=== PATIENT | female | born 1930 | race Asian ===

== ENCOUNTER 2019-03-21 20:04 | Inpatient (IN) | payer MEDICARE, BC ==
[2019-03-21 20:38] LABS: ADD MAN DIFF? NO
[2019-03-21] MEDS: ONDANSETRON 4 MG INJ IV (20:38)
[2019-03-21] MEDS: morphine 4 MG/ML VIAL IV (20:38)
[2019-03-21] MEDS: LACTATED RINGER'S 1,000 ML IV (20:38)
[2019-03-21 20:40] LABS: BASOPHILS % 0.1 % (0.0-2.0); EOSINOPHILS % 0.1 % (0.0-7.0); HEMATOCRIT 30.3 % (37.0-47.0); HEMOGLOBIN 10.3 g/dl (12.0-16.0); LYMPHOCYTES # 1.4 10^3/ul (0.8-2.9); LYMPHOCYTES % 12.8 % (15.0-51.0); MEAN CORPUSCULAR HEMOGLOBIN 32.1 pg (29.0-33.0); MEAN CORPUSCULAR VOLUME 94.4 fl (82.0-101.0); MEAN PLATELET VOLUME 10.1 fl (7.4-10.4); MONOCYTE # 0.9 10^3/ul (0.3-0.9); MONOCYTES % 7.9 % (0.0-11.0); NEUTROPHIL # 8.8 10^3/ul (1.6-7.5); NEUTROPHILS % 78.3 % (39.0-77.0); PLATELET COUNT 149 10^3/UL (140-415); RED BLOOD COUNT 3.21 10^6/ul (4.20-5.40)
[2019-03-21 20:40] LABS: WHITE BLOOD COUNT 11.3 10^3/ul (4.8-10.8)
[2019-03-21 20:59] LABS: INR 1.09; PROTIME 14.2 Sec (11.9-14.9); PT RATIO 1.1
[2019-03-21 21:20] LABS: ALANINE AMINOTRANSFERASE 29 IU/L (13-69); ALBUMIN 3.7 g/dl (3.3-4.9); ALBUMIN/GLOBULIN RATIO 1.27; ALKALINE PHOSPHATASE 44 IU/L (42-121); ANION GAP 10 (5-13); ASPARTATE AMINO TRANSFERASE 25 IU/L (15-46); BILIRUBIN,INDIRECT 0.8 mg/dl (0-1.1); BILIRUBIN,TOTAL 0.8 mg/dl (0.2-1.3); BLOOD UREA NITROGEN 21 mg/dl (7-20); CALCIUM 10.2 mg/dl (8.4-10.2); CARBON DIOXIDE 24 mmol/L (21-31); CHLORIDE 100 mmol/L (97-110); CREATININE 0.78 mg/dl (0.44-1.00); GLUCOSE 146 mg/dl (70-220); LIPASE 168 U/L (23-300); POTASSIUM 4.3 mmol/L (3.5-5.1); SODIUM 134 mmol/L (135-144); TOTAL PROTEIN 6.6 g/dl (6.1-8.1)
[2019-03-21 21:32] LABS: TROPONIN-I < 0.012 ng/ml (0.000-0.120)
[2019-03-21] MEDS: HYDROmorphONE 1 MG/ML SYG IV (21:33)
[2019-03-22] MEDS ORDERED: GLUCOSE GEL 15 GRAM TUBE BUCCAL (02:30)
[2019-03-22] MEDS ORDERED: DEXTROSE 50% 50 ML SYRINGE IV ×2 (02:30)
[2019-03-22] MEDS ORDERED: GLUCOSE GEL 15 GRAM TUBE PO ×2 (02:30)
[2019-03-22] MEDS ORDERED: ONDANSETRON 4 MG INJ IV (02:30)
[2019-03-22] MEDS ORDERED: GLUCAGON 1 MG INJ IM (02:30)
[2019-03-22] MEDS ORDERED: ACETAMINOPHEN 325 MG TAB PO (02:30)
[2019-03-22] MEDS: HYDROCODONE/APAP (5/325) TAB PO ×3 (02:52→12:37)
[2019-03-22 06:09] LABS: ADD MAN DIFF? NO
[2019-03-22 06:14] LABS: BASOPHILS % 0.1 % (0.0-2.0); HEMATOCRIT 24.3 % (37.0-47.0); LYMPHOCYTES # 1.7 10^3/ul (0.8-2.9); MEAN CORPUSCULAR HEMOGLOBIN 31.7 pg (29.0-33.0); MEAN CORPUSCULAR HGB CONC 32.9 g/dl (32.0-37.0); MEAN CORPUSCULAR VOLUME 96.4 fl (82.0-101.0); MEAN PLATELET VOLUME 11.2 fl (7.4-10.4); MONOCYTE # 0.8 10^3/ul (0.3-0.9); MONOCYTES % 8.7 % (0.0-11.0); NEUTROPHIL # 6.4 10^3/ul (1.6-7.5); NEUTROPHILS % 71.9 % (39.0-77.0); PLATELET COUNT 128 10^3/UL (140-415); RED BLOOD COUNT 2.52 10^6/ul (4.20-5.40); RED CELL DISTRIBUTION WIDTH 12.2 % (11.5-14.5)
[2019-03-22 06:23] LABS: HEMOGLOBIN A1C 5.8 % (0-5.9)
[2019-03-22 06:46] LABS: ALANINE AMINOTRANSFERASE 24 IU/L (13-69); ALBUMIN 3.3 g/dl (3.3-4.9); ALBUMIN/GLOBULIN RATIO 1.22; ALKALINE PHOSPHATASE 32 IU/L (42-121); ANION GAP 7 (5-13); ASPARTATE AMINO TRANSFERASE 22 IU/L (15-46); BLOOD UREA NITROGEN 24 mg/dl (7-20); CALCIUM 9.9 mg/dl (8.4-10.2); CARBON DIOXIDE 27 mmol/L (21-31); CHLORIDE 101 mmol/L (97-110); CREATININE 0.78 mg/dl (0.44-1.00); GLUCOSE 141 mg/dl (70-220); POTASSIUM 4.6 mmol/L (3.5-5.1); SODIUM 135 mmol/L (135-144)
[2019-03-22] MEDS: CELECOXIB 200 MG CAP PO (08:42)
[2019-03-22] MEDS: AMLODIPINE 2.5 MG TAB PO (08:43)
[2019-03-22] MEDS: MAGNESIUM OXIDE 400 MG TAB PO ×2 (08:43→20:57)
[2019-03-22] MEDS: GABAPENTIN 100 MG CAP PO (08:43)
[2019-03-22] MEDS: HEPARIN 5,000 UNIT/1 ML VIAL SC ×2 (08:45→21:01)
[2019-03-22] MEDS: INSULIN ASPART [NOVOLOG] 3 ML PEN SC ×4 (08:45→21:02)
[2019-03-22] MEDS: DIGOXIN 0.125 MG TAB PO (12:37)
[2019-03-22] MEDS: morphine 2 MG INJ IV (16:29)
[2019-03-22] MEDS: ATORVASTATIN 10 MG TAB PO (20:57)
[2019-03-22] MEDS ORDERED: NON-FORMULARY/PATIENT OWN MED (Simvastatin 10 MG) PO (21:00)
[2019-03-23] MEDS: HYDROCODONE/APAP (5/325) TAB PO ×3 (00:33→15:26)
[2019-03-23] MEDS: ALBUTEROL/IPRATROPIUM (NEB) 3 ML AMP HHN (00:53)
[2019-03-23] MEDS: ACCU-CHEK XX (02:35)
[2019-03-23 06:05] LABS: ADD MAN DIFF? NO
[2019-03-23 06:32] LABS: ANION GAP 6 (5-13); BLOOD UREA NITROGEN 30 mg/dl (7-20); CALCIUM 9.8 mg/dl (8.4-10.2); CARBON DIOXIDE 31 mmol/L (21-31); CHLORIDE 95 mmol/L (97-110); CREATININE 1.12 mg/dl (0.44-1.00); GLUCOSE 164 mg/dl (70-220); MAGNESIUM 1.9 mg/dl (1.7-2.5); PHOSPHORUS 3.4 mg/dl (2.5-4.9); POTASSIUM 4.3 mmol/L (3.5-5.1); SODIUM 132 mmol/L (135-144)
[2019-03-23 06:46] LABS: ABNORMAL IP MESSAGE 1; HEMATOCRIT 20.1 % (37.0-47.0); MEAN CORPUSCULAR HEMOGLOBIN 31.8 pg (29.0-33.0); MEAN CORPUSCULAR HGB CONC 33.8 g/dl (32.0-37.0); MEAN CORPUSCULAR VOLUME 93.9 fl (82.0-101.0); MEAN PLATELET VOLUME 11.6 fl (7.4-10.4); PLATELET COUNT 95 10^3/UL (140-415); RED BLOOD COUNT 2.14 10^6/ul (4.20-5.40); RED CELL DISTRIBUTION WIDTH 12.4 % (11.5-14.5)
[2019-03-23 06:46] LABS: WHITE BLOOD COUNT 7.5 10^3/ul (4.8-10.8)
[2019-03-23 06:57] LABS: POSITIVE DIFF @See below
[2019-03-23 06:59] LABS: HEMOGLOBIN 6.8 g/dl (12.0-16.0)
[2019-03-23 07:50] LABS: HEMATOCRIT 20.8 % (37.0-47.0)
[2019-03-23] MEDS: INSULIN ASPART [NOVOLOG] 3 ML PEN SC ×4 (08:30→20:34)
[2019-03-23] MEDS: MAGNESIUM OXIDE 400 MG TAB PO ×3 (08:53→20:32)
[2019-03-23] MEDS: GABAPENTIN 100 MG CAP PO (08:54)
[2019-03-23] MEDS: AMLODIPINE 2.5 MG TAB PO (08:54)
[2019-03-23] MEDS: HEPARIN 5,000 UNIT/1 ML VIAL SC ×2 (08:55→09:00)
[2019-03-23 09:25] LABS: BASOPHILS % (M) 1 % (0-2); EOSINOPHILS % (M) 2 % (0-7); ERYTHROBLAST% (NRBC) (M) 2 % (0-0); GIANT THROMBO% (M) 1 % (0-0); LYMPHOCYTES #M 2.5 10^3/ul (0.8-2.9); LYMPHOCYTES % (M) 34 % (15-51); MONOCYTE #M 0.3 10^3/ul (0.3-0.9); MONOCYTES % (M) 4 % (0-11); PLATELET ESTIMATE DECREASED; SEGMENTED NEUTROPHILS (M) % 59 % (39-77); SMUDGE%M 9 % (0-0)
[2019-03-23 11:08] LABS: IMMEDIATE SPIN CROSSMATCH 1 1
[2019-03-23] MEDS: DIGOXIN 0.125 MG TAB PO (14:39)
[2019-03-23] MEDS: ATORVASTATIN 10 MG TAB PO (20:32)
[2019-03-24] MEDS: ACCU-CHEK XX (02:00)
[2019-03-24] MEDS: HYDROCODONE/APAP (5/325) TAB PO ×3 (03:14→18:51)
[2019-03-24 06:11] LABS: ADD MAN DIFF? NO
[2019-03-24 06:16] LABS: WHITE BLOOD COUNT 9.3 10^3/ul (4.8-10.8)
[2019-03-24 06:16] LABS: BASOPHILS % 0.2 % (0.0-2.0); EOSINOPHILS % 0.4 % (0.0-7.0); HEMOGLOBIN 8.5 g/dl (12.0-16.0); LYMPHOCYTES # 1.8 10^3/ul (0.8-2.9); LYMPHOCYTES % 19.1 % (15.0-51.0); MEAN CORPUSCULAR HEMOGLOBIN 31.7 pg (29.0-33.0); MEAN CORPUSCULAR VOLUME 93.3 fl (82.0-101.0); MEAN PLATELET VOLUME 10.9 fl (7.4-10.4); MONOCYTE # 0.6 10^3/ul (0.3-0.9); MONOCYTES % 5.9 % (0.0-11.0); NEUTROPHIL # 6.8 10^3/ul (1.6-7.5); NEUTROPHILS % 73.6 % (39.0-77.0); PLATELET COUNT 100 10^3/UL (140-415); RED BLOOD COUNT 2.68 10^6/ul (4.20-5.40); RED CELL DISTRIBUTION WIDTH 13.2 % (11.5-14.5)
[2019-03-24 06:42] LABS: ANION GAP 7 (5-13); BLOOD UREA NITROGEN 18 mg/dl (7-20); CALCIUM 9.8 mg/dl (8.4-10.2); CARBON DIOXIDE 31 mmol/L (21-31); CHLORIDE 98 mmol/L (97-110); CREATININE 0.83 mg/dl (0.44-1.00); GLUCOSE 156 mg/dl (70-220); MAGNESIUM 1.8 mg/dl (1.7-2.5); PHOSPHORUS 2.9 mg/dl (2.5-4.9); POTASSIUM 4.1 mmol/L (3.5-5.1); SODIUM 136 mmol/L (135-144)
[2019-03-24] MEDS: MAGNESIUM OXIDE 400 MG TAB PO ×2 (08:08→20:18)
[2019-03-24] MEDS: GABAPENTIN 100 MG CAP PO (08:08)
[2019-03-24] MEDS: AMLODIPINE 2.5 MG TAB PO (08:11)
[2019-03-24] MEDS: INSULIN ASPART [NOVOLOG] 3 ML PEN SC ×4 (08:12→20:30)
[2019-03-24] MEDS: DIGOXIN 0.125 MG TAB PO (14:15)
[2019-03-24] MEDS: ATORVASTATIN 10 MG TAB PO (20:18)
[2019-03-25] MEDS: ACCU-CHEK XX (01:28)
[2019-03-25] MEDS: HYDROCODONE/APAP (5/325) TAB PO ×3 (02:32→23:54)
[2019-03-25 06:28] LABS: ADD MAN DIFF? NO
[2019-03-25 06:37] LABS: WHITE BLOOD COUNT 9.3 10^3/ul (4.8-10.8)
[2019-03-25 06:37] LABS: BASOPHILS % 0.2 % (0.0-2.0); EOSINOPHILS # 0.1 10^3/ul (0.0-0.5); EOSINOPHILS % 0.9 % (0.0-7.0); HEMATOCRIT 24.7 % (37.0-47.0); HEMOGLOBIN 8.5 g/dl (12.0-16.0); LYMPHOCYTES # 1.6 10^3/ul (0.8-2.9); LYMPHOCYTES % 16.6 % (15.0-51.0); MEAN CORPUSCULAR HEMOGLOBIN 31.7 pg (29.0-33.0); MEAN CORPUSCULAR HGB CONC 34.4 g/dl (32.0-37.0); MEAN CORPUSCULAR VOLUME 92.2 fl (82.0-101.0); MEAN PLATELET VOLUME 11.1 fl (7.4-10.4); MONOCYTES % 10.4 % (0.0-11.0); NEUTROPHIL # 6.7 10^3/ul (1.6-7.5); NEUTROPHILS % 71.4 % (39.0-77.0); PLATELET COUNT 123 10^3/UL (140-415); RED BLOOD COUNT 2.68 10^6/ul (4.20-5.40); RED CELL DISTRIBUTION WIDTH 12.7 % (11.5-14.5)
[2019-03-25 07:17] LABS: ANION GAP 5 (5-13); BLOOD UREA NITROGEN 20 mg/dl (7-20); CARBON DIOXIDE 31 mmol/L (21-31); CHLORIDE 97 mmol/L (97-110); GLUCOSE 167 mg/dl (70-220); POTASSIUM 4.4 mmol/L (3.5-5.1); SODIUM 133 mmol/L (135-144)
[2019-03-25 07:18] LABS: ALBUMIN 3.1 g/dl (3.3-4.9); CALCIUM 9.6 mg/dl (8.4-10.2); CREATININE 0.74 mg/dl (0.44-1.00); MAGNESIUM 1.9 mg/dl (1.7-2.5); PHOSPHORUS 2.6 mg/dl (2.5-4.9)
[2019-03-25] MEDS: INSULIN ASPART [NOVOLOG] 3 ML PEN SC ×4 (08:40→21:22)
[2019-03-25] MEDS: MAGNESIUM OXIDE 400 MG TAB PO ×2 (08:41→21:21)
[2019-03-25] MEDS: AMLODIPINE 2.5 MG TAB PO (08:42)
[2019-03-25] MEDS: GABAPENTIN 100 MG CAP PO (08:42)
[2019-03-25] MEDS: morphine 2 MG INJ IV ×2 (12:20→18:38)
[2019-03-25] MEDS: DIGOXIN 0.125 MG TAB PO (12:26)
[2019-03-25] MEDS: ATORVASTATIN 10 MG TAB PO (21:21)
[2019-03-26] MEDS: DOCUSATE SODIUM 100 MG CAP PO ×3 (00:15→20:44)
[2019-03-26] MEDS: POLYETHYLENE GLYCOL 17 GM PACKET PO ×2 (00:15→09:30)
[2019-03-26] MEDS: ACCU-CHEK XX (01:52)
[2019-03-26] MEDS: HYDROCODONE/APAP (5/325) TAB PO ×2 (06:07→17:01)
[2019-03-26 06:38] LABS: ADD MAN DIFF? NO
[2019-03-26 06:41] LABS: BASOPHILS % 0.1 % (0.0-2.0); EOSINOPHILS # 0.1 10^3/ul (0.0-0.5); EOSINOPHILS % 1.4 % (0.0-7.0); HEMATOCRIT 26.4 % (37.0-47.0); HEMOGLOBIN 9.1 g/dl (12.0-16.0); LYMPHOCYTES # 1.9 10^3/ul (0.8-2.9); LYMPHOCYTES % 20.8 % (15.0-51.0); MEAN CORPUSCULAR HEMOGLOBIN 31.8 pg (29.0-33.0); MEAN CORPUSCULAR HGB CONC 34.5 g/dl (32.0-37.0); MEAN CORPUSCULAR VOLUME 92.3 fl (82.0-101.0); MONOCYTE # 1.1 10^3/ul (0.3-0.9); MONOCYTES % 11.6 % (0.0-11.0); NEUTROPHIL # 5.9 10^3/ul (1.6-7.5); NEUTROPHILS % 65.5 % (39.0-77.0); PLATELET COUNT 159 10^3/UL (140-415); RED BLOOD COUNT 2.86 10^6/ul (4.20-5.40); RED CELL DISTRIBUTION WIDTH 12.5 % (11.5-14.5)
[2019-03-26 07:40] LABS: ANION GAP 5 (5-13); BLOOD UREA NITROGEN 21 mg/dl (7-20); CALCIUM 9.8 mg/dl (8.4-10.2); CARBON DIOXIDE 32 mmol/L (21-31); CHLORIDE 96 mmol/L (97-110); CREATININE 0.77 mg/dl (0.44-1.00); GLUCOSE 155 mg/dl (70-220); POTASSIUM 4.1 mmol/L (3.5-5.1); SODIUM 133 mmol/L (135-144)
[2019-03-26] MEDS: INSULIN ASPART [NOVOLOG] 3 ML PEN SC ×4 (09:29→20:46)
[2019-03-26] MEDS: GABAPENTIN 100 MG CAP PO (09:29)
[2019-03-26] MEDS: AMLODIPINE 2.5 MG TAB PO (09:30)
[2019-03-26] MEDS: MAGNESIUM OXIDE 400 MG TAB PO ×2 (09:30→20:43)
[2019-03-26] MEDS: morphine 2 MG INJ IV (11:36)
[2019-03-26] MEDS: DIGOXIN 0.125 MG TAB PO (12:34)
[2019-03-26] MEDS: SOD CHLORIDE 0.9% 250 ML IV* (14:32)
[2019-03-26 17:52] LABS: IMMEDIATE SPIN CROSSMATCH 1 3
[2019-03-26] MEDS: ATORVASTATIN 10 MG TAB PO (20:44)
[2019-03-27] MEDS: DEXTROSE 5%-0.45% NACL 1,000 ML IV ×2 (02:05→06:00)
[2019-03-27] MEDS: INSULIN ASPART [NOVOLOG] 3 ML PEN SC ×6 (02:19→21:04)
[2019-03-27] MEDS: morphine 2 MG INJ IV ×3 (03:33→20:58)
[2019-03-27 06:32] LABS: ADD MAN DIFF? NO
[2019-03-27 06:37] LABS: BASOPHILS % 0.2 % (0.0-2.0); EOSINOPHILS # 0.1 10^3/ul (0.0-0.5); EOSINOPHILS % 0.6 % (0.0-7.0); HEMATOCRIT 33.6 % (37.0-47.0); HEMOGLOBIN 11.6 g/dl (12.0-16.0); LYMPHOCYTES # 1.4 10^3/ul (0.8-2.9); LYMPHOCYTES % 13.9 % (15.0-51.0); MEAN CORPUSCULAR HEMOGLOBIN 29.9 pg (29.0-33.0); MEAN CORPUSCULAR HGB CONC 34.5 g/dl (32.0-37.0); MEAN CORPUSCULAR VOLUME 86.6 fl (82.0-101.0); MEAN PLATELET VOLUME 10.9 fl (7.4-10.4); MONOCYTE # 1.3 10^3/ul (0.3-0.9); NEUTROPHIL # 7.2 10^3/ul (1.6-7.5); NEUTROPHILS % 71.8 % (39.0-77.0); PLATELET COUNT 149 10^3/UL (140-415); RED BLOOD COUNT 3.88 10^6/ul (4.20-5.40); RED CELL DISTRIBUTION WIDTH 15.4 % (11.5-14.5)
[2019-03-27 06:57] LABS: ANION GAP 8 (5-13); BLOOD UREA NITROGEN 22 mg/dl (7-20); CALCIUM 9.6 mg/dl (8.4-10.2); CARBON DIOXIDE 30 mmol/L (21-31); CHLORIDE 96 mmol/L (97-110); CREATININE 0.64 mg/dl (0.44-1.00); GLUCOSE 194 mg/dl (70-220); MAGNESIUM 1.9 mg/dl (1.7-2.5); PHOSPHORUS 2.5 mg/dl (2.5-4.9); SODIUM 134 mmol/L (135-144)
[2019-03-27] MEDS: ACCU-CHEK XX (08:34)
[2019-03-27] MEDS: DOCUSATE SODIUM 100 MG CAP PO ×2 (08:38→20:43)
[2019-03-27] MEDS: AMLODIPINE 2.5 MG TAB PO (08:39)
[2019-03-27] MEDS: MAGNESIUM OXIDE 400 MG TAB PO ×2 (08:39→20:43)
[2019-03-27] MEDS: GABAPENTIN 100 MG CAP PO (08:39)
[2019-03-27] MEDS: POLYETHYLENE GLYCOL 17 GM PACKET PO (08:39)
[2019-03-27] MEDS: DIGOXIN 0.125 MG TAB PO (12:14)
[2019-03-27 14:21] LABS: OCCULT BLOOD STOOL NEGATIVE (NEGATIVE)
[2019-03-27] MEDS ORDERED: PHENYLephrine (100 MCG/ML) 5ML SYG (16:30)
[2019-03-27] MEDS ORDERED: FENTAnyl 50 MCG/ML VIAL (16:38)
[2019-03-27] MEDS ORDERED: PROPOFOL 100 ML (16:38)
[2019-03-27] MEDS ORDERED: METOCLOPRAMIDE 10 MG INJ (17:32)
[2019-03-27] MEDS ORDERED: DEXAMETHASONE 4 MG/ML 5 ML INJ (17:32)
[2019-03-27] MEDS ORDERED: ONDANSETRON 4 MG INJ (17:32)
[2019-03-27] MEDS: POLYMYXIN/BACITRACIN 1L IRRIG (17:47)
[2019-03-27] MEDS ORDERED: ALBUMIN HUMAN 5% 250 ML IV (18:30)
[2019-03-27] MEDS ORDERED: LABETALOL HCL 20MG INJ IV (18:30)
[2019-03-27] MEDS ORDERED: morphine 2 MG INJ IV ×2 (18:30)
[2019-03-27] MEDS ORDERED: DIPHENHYDRAMINE 50 MG INJ IV ×2 (18:30)
[2019-03-27] MEDS ORDERED: ACETAMINOPHEN 500 MG TAB PO (18:30)
[2019-03-27] MEDS ORDERED: OXYCODONE/ACETAMINOPHEN (5/325) TAB PO (18:30)
[2019-03-27] MEDS ORDERED: MEPERIDINE 25 MG INJ IV (18:30)
[2019-03-27] MEDS ORDERED: NALBUPHINE HCL (10 MG/1 ML) INJ IV (18:30)
[2019-03-27] MEDS ORDERED: FENTAnyl 50 MCG/ML VIAL IV ×2 (18:30)
[2019-03-27] MEDS ORDERED: HYDROmorphONE 1 MG/5 ML IV SYRINGE IV ×2 (18:30)
[2019-03-27] MEDS ORDERED: HYDROmorphONE 0.5 MG/0.5 ML SYG IV ×2 (18:30)
[2019-03-27] MEDS ORDERED: NALOXONE (0.4 MG/ML) INJ IV (18:30)
[2019-03-27] MEDS ORDERED: ONDANSETRON 4 MG INJ IV ×2 (18:30)
[2019-03-27] MEDS ORDERED: EPHEDrine 25 MG/5 ML SYG IV (18:30)
[2019-03-27] MEDS ORDERED: HYDROCODONE/APAP (5/325) TAB PO (18:30)
[2019-03-27] MEDS ORDERED: ROPIVACAINE 0.5 % 30 ML VIAL (18:34)
[2019-03-27] MEDS ORDERED: NACL 0.9% 3 ML SYG IV (19:00)
[2019-03-27] MEDS ORDERED: HYDROmorphONE 1 MG/ML SYG IV (19:00)
[2019-03-27] MEDS: CEFAZOLIN 2 GM/50 ML (PMX) 50 ML IVPB (19:35)
[2019-03-27 20:02] LABS: ADD MAN DIFF? NO
[2019-03-27 20:14] LABS: WHITE BLOOD COUNT 11.1 10^3/ul (4.8-10.8)
[2019-03-27 20:14] LABS: BASOPHILS % 0.2 % (0.0-2.0); EOSINOPHILS % 0.3 % (0.0-7.0); HEMATOCRIT 35.1 % (37.0-47.0); LYMPHOCYTES # 0.8 10^3/ul (0.8-2.9); LYMPHOCYTES % 7.5 % (15.0-51.0); MEAN CORPUSCULAR HEMOGLOBIN 30.1 pg (29.0-33.0); MEAN CORPUSCULAR HGB CONC 34.2 g/dl (32.0-37.0); MEAN PLATELET VOLUME 10.6 fl (7.4-10.4); MONOCYTE # 0.6 10^3/ul (0.3-0.9); MONOCYTES % 5.4 % (0.0-11.0); NEUTROPHIL # 9.6 10^3/ul (1.6-7.5); PLATELET COUNT 158 10^3/UL (140-415); RED BLOOD COUNT 3.99 10^6/ul (4.20-5.40); RED CELL DISTRIBUTION WIDTH 15.4 % (11.5-14.5)
[2019-03-27] MEDS: SOD CHLORIDE 0.9% 1,000 ML IV (20:42)
[2019-03-27] MEDS: ATORVASTATIN 10 MG TAB PO (20:43)
[2019-03-28] MEDS: CEFAZOLIN 2 GM/50 ML (PMX) 50 ML IVPB ×2 (03:42→12:23)
[2019-03-28 06:15] LABS: ADD MAN DIFF? NO
[2019-03-28 06:24] LABS: ABNORMAL IP MESSAGE 1; BASOPHILS % 0.1 % (0.0-2.0); HEMATOCRIT 31.2 % (37.0-47.0); HEMOGLOBIN 10.9 g/dl (12.0-16.0); LYMPHOCYTES # 0.6 10^3/ul (0.8-2.9); LYMPHOCYTES % 5.4 % (15.0-51.0); MEAN CORPUSCULAR HEMOGLOBIN 30.2 pg (29.0-33.0); MEAN CORPUSCULAR HGB CONC 34.9 g/dl (32.0-37.0); MEAN CORPUSCULAR VOLUME 86.4 fl (82.0-101.0); MONOCYTE # 0.8 10^3/ul (0.3-0.9); MONOCYTES % 7.7 % (0.0-11.0); NEUTROPHILS % 86.3 % (39.0-77.0); PLATELET COUNT 163 10^3/UL (140-415); RED BLOOD COUNT 3.61 10^6/ul (4.20-5.40)
[2019-03-28 06:24] LABS: WHITE BLOOD COUNT 10.4 10^3/ul (4.8-10.8)
[2019-03-28 06:34] LABS: POSITIVE DIFF @See below
[2019-03-28 06:53] LABS: ANION GAP 7 (5-13); BLOOD UREA NITROGEN 24 mg/dl (7-20); CALCIUM 9.5 mg/dl (8.4-10.2); CARBON DIOXIDE 27 mmol/L (21-31); CHLORIDE 102 mmol/L (97-110); CREATININE 0.67 mg/dl (0.44-1.00); GLUCOSE 264 mg/dl (70-220); SODIUM 136 mmol/L (135-144)
[2019-03-28] MEDS: INSULIN ASPART [NOVOLOG] 3 ML PEN SC ×4 (08:13→21:04)
[2019-03-28] MEDS: ENOXAPARIN 40 MG/0.4 ML SYG SC (08:14)
[2019-03-28] MEDS: GABAPENTIN 100 MG CAP PO (08:15)
[2019-03-28] MEDS: DOCUSATE SODIUM 100 MG CAP PO ×2 (08:15→21:02)
[2019-03-28] MEDS: MAGNESIUM OXIDE 400 MG TAB PO ×2 (08:15→21:02)
[2019-03-28] MEDS: SOD CHLORIDE 0.9% 1,000 ML IV (08:15)
[2019-03-28] MEDS: POLYETHYLENE GLYCOL 17 GM PACKET PO (08:15)
[2019-03-28] MEDS: AMLODIPINE 2.5 MG TAB PO (08:17)
[2019-03-28 10:43] LABS: ANION GAP 9 (5-13); BLOOD UREA NITROGEN 23 mg/dl (7-20); CALCIUM 9.7 mg/dl (8.4-10.2); CARBON DIOXIDE 26 mmol/L (21-31); CHLORIDE 101 mmol/L (97-110); CREATININE 0.68 mg/dl (0.44-1.00); GLUCOSE 257 mg/dl (70-220); MAGNESIUM 1.8 mg/dl (1.7-2.5); PHOSPHORUS 2.8 mg/dl (2.5-4.9); POTASSIUM 3.9 mmol/L (3.5-5.1); SODIUM 136 mmol/L (135-144)
[2019-03-28] MEDS: DIGOXIN 0.125 MG TAB PO (12:23)
[2019-03-28] MEDS: HYDROCODONE/APAP (5/325) TAB PO (17:47)
[2019-03-28] MEDS: ATORVASTATIN 10 MG TAB PO (21:02)
[2019-03-28] MEDS: traMADol 50 MG TAB PO (22:00)
[2019-03-29] MEDS: hydrALAzine 20 MG INJ IV ×2 (06:20→20:03)
[2019-03-29 06:22] LABS: ADD MAN DIFF? NO
[2019-03-29 06:35] LABS: WHITE BLOOD COUNT 11.2 10^3/ul (4.8-10.8)
[2019-03-29 06:35] LABS: BASOPHILS % 0.1 % (0.0-2.0); EOSINOPHILS # 0.1 10^3/ul (0.0-0.5); EOSINOPHILS % 0.7 % (0.0-7.0); HEMOGLOBIN 10.1 g/dl (12.0-16.0); LYMPHOCYTES # 1.3 10^3/ul (0.8-2.9); LYMPHOCYTES % 11.5 % (15.0-51.0); MEAN CORPUSCULAR HEMOGLOBIN 30.4 pg (29.0-33.0); MEAN CORPUSCULAR HGB CONC 34.8 g/dl (32.0-37.0); MEAN CORPUSCULAR VOLUME 87.3 fl (82.0-101.0); MEAN PLATELET VOLUME 10.8 fl (7.4-10.4); MONOCYTE # 1.1 10^3/ul (0.3-0.9); MONOCYTES % 10.1 % (0.0-11.0); NEUTROPHIL # 8.6 10^3/ul (1.6-7.5); NEUTROPHILS % 77.1 % (39.0-77.0); PLATELET COUNT 180 10^3/UL (140-415); RED BLOOD COUNT 3.32 10^6/ul (4.20-5.40); RED CELL DISTRIBUTION WIDTH 14.7 % (11.5-14.5)
[2019-03-29 06:52] LABS: ALBUMIN 2.6 g/dl (3.3-4.9); ANION GAP 6 (5-13); BLOOD UREA NITROGEN 23 mg/dl (7-20); CALCIUM 9.6 mg/dl (8.4-10.2); CARBON DIOXIDE 30 mmol/L (21-31); CHLORIDE 98 mmol/L (97-110); CREATININE 0.64 mg/dl (0.44-1.00); GLUCOSE 176 mg/dl (70-220); MAGNESIUM 1.8 mg/dl (1.7-2.5); PHOSPHORUS 2.1 mg/dl (2.5-4.9); POTASSIUM 3.6 mmol/L (3.5-5.1); SODIUM 134 mmol/L (135-144)
[2019-03-29] MEDS: INSULIN ASPART [NOVOLOG] 3 ML PEN SC ×4 (08:26→20:46)
[2019-03-29] MEDS: MAGNESIUM OXIDE 400 MG TAB PO ×2 (09:15→20:44)
[2019-03-29] MEDS: HYDROCODONE/APAP (5/325) TAB PO ×2 (09:15→15:57)
[2019-03-29] MEDS: POLYETHYLENE GLYCOL 17 GM PACKET PO (09:16)
[2019-03-29] MEDS: DOCUSATE SODIUM 100 MG CAP PO ×2 (09:16→20:44)
[2019-03-29] MEDS: AMLODIPINE 2.5 MG TAB PO (09:16)
[2019-03-29] MEDS: GABAPENTIN 100 MG CAP PO (09:16)
[2019-03-29] MEDS: ENOXAPARIN 40 MG/0.4 ML SYG SC (09:17)
[2019-03-29] MEDS: POTASSIUM CHLORIDE (SR) 20 MEQ TAB PO (11:42)
[2019-03-29] MEDS ORDERED: DIPHENHYDRAMINE 1%/ZINC 28.3 GM CR TOP ×2 (12:00)
[2019-03-29] MEDS: NYSTATIN 15 GM OINT TOP ×2 (14:04→20:46)
[2019-03-29] MEDS: DIGOXIN 0.125 MG TAB PO (14:04)
[2019-03-29] MEDS: ATORVASTATIN 10 MG TAB PO (20:44)
[2019-03-29] MEDS: ASPIRIN 81 MG TAB PO (20:45)
[2019-03-30] MEDS: HYDROCODONE/APAP (5/325) TAB PO (02:46)
[2019-03-30] MEDS: hydrALAzine 20 MG INJ IV (06:18)
[2019-03-30 07:29] LABS: ADD MAN DIFF? NO
[2019-03-30 07:45] LABS: BASOPHILS % 0.1 % (0.0-2.0); EOSINOPHILS # 0.1 10^3/ul (0.0-0.5); EOSINOPHILS % 0.9 % (0.0-7.0); HEMATOCRIT 30.7 % (37.0-47.0); HEMOGLOBIN 10.7 g/dl (12.0-16.0); LYMPHOCYTES # 1.3 10^3/ul (0.8-2.9); MEAN CORPUSCULAR HEMOGLOBIN 30.3 pg (29.0-33.0); MEAN CORPUSCULAR HGB CONC 34.9 g/dl (32.0-37.0); MEAN PLATELET VOLUME 10.8 fl (7.4-10.4); MONOCYTE # 1.3 10^3/ul (0.3-0.9); MONOCYTES % 12.2 % (0.0-11.0); NEUTROPHIL # 7.8 10^3/ul (1.6-7.5); NEUTROPHILS % 74.1 % (39.0-77.0); PLATELET COUNT 204 10^3/UL (140-415); RED BLOOD COUNT 3.53 10^6/ul (4.20-5.40); RED CELL DISTRIBUTION WIDTH 14.6 % (11.5-14.5)
[2019-03-30 07:45] LABS: WHITE BLOOD COUNT 10.6 10^3/ul (4.8-10.8)
[2019-03-30 07:56] LABS: ALBUMIN 2.8 g/dl (3.3-4.9); ANION GAP 5 (5-13); BLOOD UREA NITROGEN 28 mg/dl (7-20); CALCIUM 9.2 mg/dl (8.4-10.2); CARBON DIOXIDE 28 mmol/L (21-31); CHLORIDE 97 mmol/L (97-110); CREATININE 0.58 mg/dl (0.44-1.00); GLUCOSE 174 mg/dl (70-220); MAGNESIUM 1.9 mg/dl (1.7-2.5); PHOSPHORUS 2.3 mg/dl (2.5-4.9); SODIUM 130 mmol/L (135-144)
[2019-03-30] MEDS: POLYETHYLENE GLYCOL 17 GM PACKET PO (08:14)
[2019-03-30] MEDS: GABAPENTIN 100 MG CAP PO (08:14)
[2019-03-30] MEDS: MAGNESIUM OXIDE 400 MG TAB PO ×2 (08:14→20:25)
[2019-03-30] MEDS: ASPIRIN 81 MG TAB PO ×2 (08:14→20:25)
[2019-03-30] MEDS: ENOXAPARIN 40 MG/0.4 ML SYG SC (08:15)
[2019-03-30] MEDS: AMLODIPINE 2.5 MG TAB PO (08:16)
[2019-03-30] MEDS: DOCUSATE SODIUM 100 MG CAP PO ×2 (08:17→20:25)
[2019-03-30] MEDS: INSULIN ASPART [NOVOLOG] 3 ML PEN SC ×4 (08:18→20:25)
[2019-03-30] MEDS: NYSTATIN 15 GM OINT TOP ×3 (08:19→20:26)
[2019-03-30] MEDS: DIGOXIN 0.125 MG TAB PO (12:31)
[2019-03-30] MEDS: oxyCODONE 5 MG TAB PO ×2 (16:14→20:27)
[2019-03-30] MEDS: ATORVASTATIN 10 MG TAB PO (20:25)
[2019-03-31] MEDS: oxyCODONE 5 MG TAB PO ×2 (03:57→10:49)
[2019-03-31 06:05] LABS: ADD MAN DIFF? NO
[2019-03-31 06:09] LABS: WHITE BLOOD COUNT 10.7 10^3/ul (4.8-10.8)
[2019-03-31 06:09] LABS: BASOPHILS % 0.1 % (0.0-2.0); EOSINOPHILS # 0.1 10^3/ul (0.0-0.5); EOSINOPHILS % 0.5 % (0.0-7.0); HEMATOCRIT 29.8 % (37.0-47.0); HEMOGLOBIN 10.2 g/dl (12.0-16.0); LYMPHOCYTES # 0.9 10^3/ul (0.8-2.9); LYMPHOCYTES % 8.2 % (15.0-51.0); MEAN CORPUSCULAR HEMOGLOBIN 30.5 pg (29.0-33.0); MEAN CORPUSCULAR HGB CONC 34.2 g/dl (32.0-37.0); MEAN CORPUSCULAR VOLUME 89.2 fl (82.0-101.0); MEAN PLATELET VOLUME 10.9 fl (7.4-10.4); MONOCYTES % 9.7 % (0.0-11.0); NEUTROPHIL # 8.6 10^3/ul (1.6-7.5); NEUTROPHILS % 80.9 % (39.0-77.0); PLATELET COUNT 210 10^3/UL (140-415); RED BLOOD COUNT 3.34 10^6/ul (4.20-5.40); RED CELL DISTRIBUTION WIDTH 14.5 % (11.5-14.5)
[2019-03-31 06:37] LABS: ALBUMIN 2.5 g/dl (3.3-4.9); ANION GAP 9 (5-13); BLOOD UREA NITROGEN 25 mg/dl (7-20); CALCIUM 9.5 mg/dl (8.4-10.2); CARBON DIOXIDE 26 mmol/L (21-31); CHLORIDE 95 mmol/L (97-110); CREATININE 0.65 mg/dl (0.44-1.00); GLUCOSE 278 mg/dl (70-220); MAGNESIUM 1.8 mg/dl (1.7-2.5); PHOSPHORUS 2.6 mg/dl (2.5-4.9); POTASSIUM 4.2 mmol/L (3.5-5.1); SODIUM 130 mmol/L (135-144)
[2019-03-31] MEDS: GABAPENTIN 100 MG CAP PO (08:41)
[2019-03-31] MEDS: ASPIRIN 81 MG TAB PO (08:41)
[2019-03-31] MEDS: MAGNESIUM OXIDE 400 MG TAB PO ×2 (08:42→20:06)
[2019-03-31] MEDS: POLYETHYLENE GLYCOL 17 GM PACKET PO (08:43)
[2019-03-31] MEDS: AMLODIPINE 10 MG TAB PO (08:43)
[2019-03-31] MEDS: DOCUSATE SODIUM 100 MG CAP PO ×2 (08:43→20:09)
[2019-03-31] MEDS: INSULIN ASPART [NOVOLOG] 3 ML PEN SC ×4 (08:47→20:05)
[2019-03-31] MEDS: ENOXAPARIN 40 MG/0.4 ML SYG SC (08:50)
[2019-03-31] MEDS: NYSTATIN 15 GM OINT TOP ×3 (08:50→20:10)
[2019-03-31] MEDS: NACL 0.9% 3 ML SYG IV (08:55)
[2019-03-31] MEDS: DIGOXIN 0.125 MG TAB PO (12:28)
[2019-03-31] MEDS: ATORVASTATIN 10 MG TAB PO (20:06)
[2019-03-31] MEDS: hydrALAzine 20 MG INJ IV (20:08)
[2019-04-01 05:54] LABS: ADD MAN DIFF? NO
[2019-04-01 05:59] LABS: BASOPHILS % 0.1 % (0.0-2.0); EOSINOPHILS # 0.1 10^3/ul (0.0-0.5); EOSINOPHILS % 0.5 % (0.0-7.0); HEMATOCRIT 30.3 % (37.0-47.0); HEMOGLOBIN 10.6 g/dl (12.0-16.0); LYMPHOCYTES # 1.4 10^3/ul (0.8-2.9); LYMPHOCYTES % 11.7 % (15.0-51.0); MEAN CORPUSCULAR HEMOGLOBIN 30.3 pg (29.0-33.0); MEAN CORPUSCULAR VOLUME 86.6 fl (82.0-101.0); MEAN PLATELET VOLUME 10.2 fl (7.4-10.4); MONOCYTE # 1.1 10^3/ul (0.3-0.9); MONOCYTES % 9.4 % (0.0-11.0); NEUTROPHIL # 9.3 10^3/ul (1.6-7.5); NEUTROPHILS % 77.7 % (39.0-77.0); PLATELET COUNT 221 10^3/UL (140-415); RED CELL DISTRIBUTION WIDTH 14.3 % (11.5-14.5)
[2019-04-01 06:44] LABS: ALBUMIN 2.6 g/dl (3.3-4.9); ANION GAP 5 (5-13); BLOOD UREA NITROGEN 25 mg/dl (7-20); CALCIUM 9.5 mg/dl (8.4-10.2); CARBON DIOXIDE 29 mmol/L (21-31); CHLORIDE 97 mmol/L (97-110); CREATININE 0.61 mg/dl (0.44-1.00); GLUCOSE 172 mg/dl (70-220); MAGNESIUM 1.9 mg/dl (1.7-2.5); POTASSIUM 3.9 mmol/L (3.5-5.1); SODIUM 131 mmol/L (135-144)
[2019-04-01] MEDS: GABAPENTIN 100 MG CAP PO (08:28)
[2019-04-01] MEDS: MAGNESIUM OXIDE 400 MG TAB PO ×2 (08:28→20:47)
[2019-04-01] MEDS: AMLODIPINE 10 MG TAB PO (08:28)
[2019-04-01] MEDS: POLYETHYLENE GLYCOL 17 GM PACKET PO (08:29)
[2019-04-01] MEDS: DOCUSATE SODIUM 100 MG CAP PO ×2 (08:29→20:46)
[2019-04-01] MEDS: ENOXAPARIN 40 MG/0.4 ML SYG SC (08:32)
[2019-04-01] MEDS: INSULIN ASPART [NOVOLOG] 3 ML PEN SC ×4 (08:34→20:01)
[2019-04-01] MEDS: NYSTATIN 15 GM OINT TOP ×3 (12:16→20:49)
[2019-04-01] MEDS: oxyCODONE 5 MG TAB PO (12:48)
[2019-04-01] MEDS: DIGOXIN 0.125 MG TAB PO (14:22)
[2019-04-01] MEDS: LISINOPRIL 10 MG TAB PO (14:22)
[2019-04-01] MEDS: ATORVASTATIN 10 MG TAB PO (20:46)
[2019-04-02 07:35] LABS: ADD MAN DIFF? NO
[2019-04-02 07:40] LABS: WHITE BLOOD COUNT 10.5 10^3/ul (4.8-10.8)
[2019-04-02 07:40] LABS: BASOPHILS % 0.2 % (0.0-2.0); EOSINOPHILS # 0.1 10^3/ul (0.0-0.5); EOSINOPHILS % 0.8 % (0.0-7.0); HEMATOCRIT 29.8 % (37.0-47.0); HEMOGLOBIN 10.2 g/dl (12.0-16.0); LYMPHOCYTES # 1.2 10^3/ul (0.8-2.9); LYMPHOCYTES % 11.6 % (15.0-51.0); MEAN CORPUSCULAR HEMOGLOBIN 29.8 pg (29.0-33.0); MEAN CORPUSCULAR HGB CONC 34.2 g/dl (32.0-37.0); MEAN CORPUSCULAR VOLUME 87.1 fl (82.0-101.0); MEAN PLATELET VOLUME 10.6 fl (7.4-10.4); MONOCYTES % 9.1 % (0.0-11.0); NEUTROPHIL # 8.1 10^3/ul (1.6-7.5); NEUTROPHILS % 77.6 % (39.0-77.0); PLATELET COUNT 246 10^3/UL (140-415); RED BLOOD COUNT 3.42 10^6/ul (4.20-5.40); RED CELL DISTRIBUTION WIDTH 14.3 % (11.5-14.5)
[2019-04-02 07:58] LABS: ANION GAP 6 (5-13); BLOOD UREA NITROGEN 23 mg/dl (7-20); CALCIUM 9.8 mg/dl (8.4-10.2); CARBON DIOXIDE 29 mmol/L (21-31); CHLORIDE 97 mmol/L (97-110); CREATININE 0.61 mg/dl (0.44-1.00); GLUCOSE 146 mg/dl (70-220); MAGNESIUM 1.8 mg/dl (1.7-2.5); PHOSPHORUS 3.3 mg/dl (2.5-4.9); POTASSIUM 3.8 mmol/L (3.5-5.1); SODIUM 132 mmol/L (135-144)
[2019-04-02] MEDS: INSULIN ASPART [NOVOLOG] 3 ML PEN SC ×4 (08:13→20:53)
[2019-04-02] MEDS: DOCUSATE SODIUM 100 MG CAP PO ×2 (09:00→20:54)
[2019-04-02] MEDS: POLYETHYLENE GLYCOL 17 GM PACKET PO (09:00)
[2019-04-02] MEDS: HYDROCODONE/APAP (5/325) TAB PO (09:07)
[2019-04-02] MEDS: MAGNESIUM OXIDE 400 MG TAB PO ×2 (09:07→20:54)
[2019-04-02] MEDS: AMLODIPINE 10 MG TAB PO (09:07)
[2019-04-02] MEDS: LISINOPRIL 10 MG TAB PO (09:08)
[2019-04-02] MEDS: GABAPENTIN 100 MG CAP PO (09:08)
[2019-04-02] MEDS: NYSTATIN 15 GM OINT TOP ×3 (09:08→20:55)
[2019-04-02] MEDS: ENOXAPARIN 40 MG/0.4 ML SYG SC (09:09)
[2019-04-02] MEDS: DIGOXIN 0.125 MG TAB PO (13:05)
[2019-04-02] MEDS: ATORVASTATIN 10 MG TAB PO (20:54)
[2019-04-03] MEDS: POLYETHYLENE GLYCOL 17 GM PACKET PO (08:05)
[2019-04-03] MEDS: INSULIN ASPART [NOVOLOG] 3 ML PEN SC ×2 (08:07→12:40)
[2019-04-03] MEDS: ENOXAPARIN 40 MG/0.4 ML SYG SC (08:07)
[2019-04-03] MEDS: oxyCODONE 5 MG TAB PO (08:08)
[2019-04-03] MEDS: MAGNESIUM OXIDE 400 MG TAB PO (08:08)
[2019-04-03] MEDS: DOCUSATE SODIUM 100 MG CAP PO (08:09)
[2019-04-03] MEDS: AMLODIPINE 10 MG TAB PO (08:09)
[2019-04-03] MEDS: LISINOPRIL 10 MG TAB PO (08:09)
[2019-04-03] MEDS: GABAPENTIN 100 MG CAP PO (08:09)
[2019-04-03] MEDS: NYSTATIN 15 GM OINT TOP ×2 (08:09→12:40)
[2019-04-03] MEDS: DIGOXIN 0.125 MG TAB PO (12:37)
[2019-04-03] MEDS: HYDROCODONE/APAP (5/325) TAB PO (14:33)
== END 2019-04-03 16:57 | DRG 481 ==
LOC: PP2 03-28 16:21 → E/R 20:04 → PP2 20:48
PROC: 0QS606Z Reposition Right Upper Femur with Intramedullary Internal Fixation Device, Open Approach (ICD-10-PCS; principal; 2019-03-27 14:30)
PROC: 30233N1 Transfusion of Nonautologous Red Blood Cells into Peripheral Vein, Percutaneous Approach (ICD-10-PCS; 2019-03-27 16:30)
DX: S72.141A Displaced intertrochanteric fracture of right femur, initial encounter for closed fracture (principal); N17.9 Acute kidney failure, unspecified; D62 Acute posthemorrhagic anemia; S72.21XA Displaced subtrochanteric fracture of right femur, initial encounter for closed fracture; E11.9 Type 2 diabetes mellitus without complications; E78.5 Hyperlipidemia, unspecified; I10 Essential (primary) hypertension; I48.91 Unspecified atrial fibrillation; W18.30XA Fall on same level, unspecified, initial encounter; Y92.002 Bathroom of unspecified non-institutional (private) residence as the place of occurrence of the external cause
CPT/HCPCS: 36415; 36430; 71045; 72170; 73500; 73510; 73530; 80048; 80053; 80069; 82270; 82962; 83036; 83690; 83735; 84100; 84484; 85014; 85018; 85025; 85610; 85730; 86644; 86850; 86900; 86901; 86920; 93005; 93306; 94664; 96374; 96375; 97110; 97162; 97530; 99285-25